=== PATIENT | female | born 1965 | race Caucasian/White ===

== ENCOUNTER → 2024-08-06 15:48 | Outpatient (REF) | payer BC, SELFPAY | LOC: RAD 15:48 | PROVIDERS: ATTENDING PHYSICIAN Internal Medicine Critical Care Medicine; FAMILY PHYSICIAN Family Medicine | DX: R06.09 Other forms of dyspnea (principal) | CPT/HCPCS: 71046 ==

== ENCOUNTER → 2025-04-16 11:47 | Outpatient (REF) | payer BC, SELFPAY | LOC: HWRAD 11:47 | PROVIDERS: ATTENDING PHYSICIAN Internal Medicine Critical Care Medicine; FAMILY PHYSICIAN Family Medicine | DX: R06.09 Other forms of dyspnea (principal) | CPT/HCPCS: 71250 ==